=== PATIENT | male | born 1970 | race Caucasian/White ===

== ENCOUNTER 2020-09-30 06:32 | Day surgery (SDC) | payer BC ==
[2020-09-30] MEDS ORDERED: Propofol 200 MG/20 ML SDV IV ONE (06:33)
[2020-09-30] MEDS ORDERED: Lidocaine 1% PF 2 ML SDV INJECT ONE (06:33)
[2020-09-30] MEDS ORDERED: Sodium Chloride 0.9% 10 ML Syringe FLUSH PRN (06:45)
[2020-09-30] MEDS: Lactated Ringers 1,000 ML IV SCH (07:20)
--- NOTE | 2020-09-30 08:18 | PCM.OPNOTE ---
- General Post-Op/Procedure Note Date of Surgery/Procedure: 09/30/20 Operative Procedure(s): c scope Findings: nl exam Pre Op Diagnosis: screening for colon cancer Post-Op Diagnosis: nl exam Anesthesia Technique: MAC Primary Surgeon: Brian Fregoso Anesthesia Provider: Ralf Bueno Pathology: none Complications: None Condition: Good Free Text/Narrative:: see dictation #[id number]
--- NOTE | 2020-10-01 10:35 | OR ---
DATE OF OPERATION: 09/30/2020 SURGEON: Brian Fregoso MD PROCEDURE PERFORMED: Colonoscopy. PREOPERATIVE DIAGNOSIS: Colon cancer screening. POSTOPERATIVE DIAGNOSIS: Normal exam. INDICATIONS FOR PROCEDURE: This is a 50-year-old white male who presents for his initial screening colonoscopy. He is without complaints. He was offered and accepted the procedure. DESCRIPTION OF OPERATION: After an excellent IV sedation was administered, digital rectal exam was performed. No marked abnormality was noted. Flexible colonoscope was inserted and advanced to the cecum without difficulty. Prep was excellent. Following findings were noted. Ascending colon, unremarkable. Transverse colon, unremarkable. Descending colon, unremarkable. Sigmoid and rectum, unremarkable. Colon was deflated as the scope was removed. The patient tolerated the procedure well and was taken to recovery room. RECOMMENDATIONS: Repeat colonoscopy in 10 years. /[id number] /MODL
== END 2020-09-30 09:03 | disposition home or self-care (01) ==
LOC: FB.SDS 06:32
PROVIDERS: ATTEND Surgery
DX: Z12.11 Encounter for screening for malignant neoplasm of colon (principal); G47.33 Obstructive sleep apnea (adult) (pediatric); Z79.899 Other long term (current) drug therapy; Z79.82 Long term (current) use of aspirin; Z98.890 Other specified postprocedural states
CPT/HCPCS: 00812-QZ; J2001; J2704; J7120